=== PATIENT | male | born 1950 | race Caucasian/White ===

== ENCOUNTER → 2020-04-05 | Day surgery (SDC) | payer MEDICARE ==
[~2020-04-05] MED LIST: Lactated Ringers 1,000 ML IV SCH; Midazolam 1 MG/ML 2 ML SDV IV ONE; Propofol 200 MG/20 ML SDV IV ONE; Sodium Chloride 0.9% 10 ML Syringe FLUSH PRN
--- NOTE | 2020-04-05 09:30 | PCM.OPNOTE ---
- General Post-Op/Procedure Note Date of Surgery/Procedure: 04/05/20 Operative Procedure(s): c scope with bx Findings: diverticulitis colon polyp descending colon Pre Op Diagnosis: hx of bleeding per rectum Post-Op Diagnosis: diverticulitis. colon polyp descending colon Anesthesia Technique: MAC Primary Surgeon: Sergo Holden Anesthesia Provider: Steph Meeks Pathology: colon polyp Complications: None Condition: Good Free Text/Narrative:: see dictation
--- NOTE | 2020-04-06 09:35 | OR ---
DATE OF OPERATION: 04/05/2020 SURGEON: Sergo Holden MD PROCEDURE PERFORMED: Colonoscopy with cold forceps biopsy. PREOPERATIVE DIAGNOSIS: Bleeding per rectum. POSTOPERATIVE DIAGNOSES: 1. Diverticulosis. 2. Descending colon polyp. INDICATIONS FOR PROCEDURE: This is a 69-year-old white male, who has a history of some bright red blood per rectum. He has been treated for hemorrhoids but was offered and accepted a colonoscopy to evaluate his colon. DESCRIPTION OF OPERATION: After an excellent IV sedation was administered, digital rectal exam was performed. No marked abnormality was noted. Flexible colonoscope was inserted and advanced to the cecum. The prep was marginal. There was particulate stool throughout. We were able to irrigate, but a suboptimal view of the colon was obtained. The following findings were noted: Ascending colon, unremarkable. Transverse colon, unremarkable, scattered diverticula. Descending colon, small polypoid lesion, biopsied with cold biopsy forceps, scattered diverticula. Sigmoid, scattered diverticula. Rectum and anus, unremarkable. The patient tolerated the procedure well. Results will be sent by letter depending on the pathology. If it is an adenomatous polyp, we will recommend repeat scope in a year. If it is not, I recommend followup in 3 years. /[id number] /[id number]
== END | disposition home or self-care (01) ==
LOC: FB.SDS 07:46
PROVIDERS: ATTEND Surgery
DX: K63.5 Polyp of colon (principal); K64.8 Other hemorrhoids; E78.2 Mixed hyperlipidemia; K57.30 Diverticulosis of large intestine without perforation or abscess without bleeding; Z20.828 Contact with and (suspected) exposure to other viral communicable diseases
CPT/HCPCS: 00811; 45380; 88305; J2250; J2704; J7120

== ENCOUNTER 2025-08-22 17:25 | Emergency (ER) | payer MEDICARE ==
[2025-08-22] MEDS ORDERED: Sodium Chloride 0.9% 10 ML Syringe FLUSH PRN (17:38)
[2025-08-22] MEDS: diphenhydrAMINE 50 MG/ML SDV IVPUSH ONE (17:53)
[2025-08-22] MEDS: Hydrocortisone Sodium Succinate 100 MG/2 ML SDV IVPUSH ONE (17:54)
== END 2025-08-22 18:52 | disposition home or self-care (01) ==
LOC: FB.ED 17:25
DX: T63.441A Toxic effect of venom of bees, accidental (unintentional), initial encounter (principal); Z79.899 Other long term (current) drug therapy; Z88.5 Allergy status to narcotic agent; Z88.0 Allergy status to penicillin; Z90.49 Acquired absence of other specified parts of digestive tract
CPT/HCPCS: 96361; 96374; 96375; 99283; 99284; J1200; J1308; J1720; J7030; J7512